=== PATIENT | male | born 1960 | race Caucasian/White ===

== ENCOUNTER 2021-05-17 19:04 | Emergency (ER) | payer BC, OTHER, SELFPAY ==
--- NOTE | ~2021-05-17 | CT_ITS ---
EXAMINATION: CT brain wo con DATE: 05/17/2021 20:36 INDICATION: Head injury. TECHNIQUE: Computed tomography (CT) of the head was performed without intravenous contrast. The mA wa s adjusted according to patient size. Iterative reconstruction technique was employed. The dose-lengt h product was 681.00 mGy-cm. COMPARISON: Brain MRI 12/26/2015 FINDINGS: There is no intracranial hemorrhage, acute infarction, or abnormal intracranial mass lesion . The ventricles are normal in size. The orbits are normal. The paranasal sinuses are clear. The mast oid air cells are normal. There is posterior scalp soft tissue swelling. IMPRESSION: 1. Normal brain. Reviewed, dictated and finalized at location A. IMPRESSION: 1. Normal brain.
[2021-05-17 19:42] VITALS: BP 138/107; PULSE 74; RESP 16; TEMP 36.9; O2SAT 97
--- NOTE | 2021-05-17 20:47 | ED.FALL ---
HPI - Fall General Chief Complaint: Fall Stated Complaint: Fall - head injury Time Seen by Provider: 05/17/21 20:42 Source: RN notes reviewed History of Present Illness HPI Narrative: Patient presents to emergency department from home for a fall. Patient states he was working outside on a approximately 3 foot retaining wall when he slipped and fell backwards. Patient states that he struck his head on the wall. He believes he had approximately 1 seconds of loss of consciousness. Patient has a small area of swelling and abrasion over his posterior scalp he states he does have some small abrasions on his legs but denies any other injuries he denies any vision changes, nausea or vomiting, chest pain, shortness of breath or any other symptoms. Notes mild headache. States he takes a baby aspirin a day Review of Systems Review of Systems: Narrative: Gen.: Denies fevers or chills Eyes: Denies eye pain or visual change ENT: Denies congestion Respiratory: Denies shortness of breath or cough CV: Denies chest pain or palpitations GI: Denies abdominal pain nausea, emesis or diarrhea Musculoskeletal: Denies back pain or muscle pain Neuro: See HPI Skin: Reports mild abrasions Except as documented, all other systems reviewed and negative [facility] Past Medical History Medical History (Updated 05/17/21 @ 20:52 by Heraclio Morales DO) Patient denies significant medical history Social History Social History (Updated 05/17/21 @ 20:50 by Heraclio Morales DO) Smoking status: Never smoker Exam Narrative: Exam Narrative: APPEARANCE: No acute distress, nontoxic, resting in bed EYES: EOMI, PERRL HEENT: Normocephalic, small area of swelling with superficial abrasion over posterior scalp TMs clear bilaterally nares patent oral mucosa moist Neck: Supple no midline tenderness palpation full range of motion without pain RESPIRATORY: No respiratory distress Clear to auscultation bilaterally with no rhonchi wheezing or rales. CARDIOVASCULAR: Regular rate and rhythm without murmurs rubs or gallops. ABDOMINAL: Soft, nontender, nondistended, no rebound or guarding MUSCULOSKELETAl: Moves all extremities. No clubbing, cyanosis or edema. No tenderness palpation of the bilateral upper and lower extremities NEURO: Awake and alert x 4. Following commands, speech normal, no focal deficits SKIN:: Warm, dry. Superficial abrasion over left posterior ankle PSYCHIATRIC: Normal affect/mood, Course Course Emergency Course: Discussed with patient results of workup and diagnosis. Discussed need for follow-up with primary care, proper use of medication, and reasons to return to the emergency department. Patient understands and agrees to current treatment plan Vital Signs Vital signs: Vital Signs Temperature 98.5 F 05/17/21 19:42 Pulse Rate 74 05/17/21 19:42 Respiratory Rate 16 05/17/21 19:42 Blood Pressure 138/107 H 05/17/21 19:42 Pulse Oximetry 97 05/17/21 19:42 Temperature 98.5 F 05/17/21 19:42 Pulse Rate 74 05/17/21 19:42 Respiratory Rate 16 05/17/21 19:42 Blood Pressure 138/107 H 05/17/21 19:42 Pulse Oximetry 97 05/17/21 19:42 MDM - Fall Imaging Data Radiologist's impression: ITS Impressions Head CT 05/17/21 20:38 IMPRESSION: 1. Normal brain. Discharge Plan Discharge Clinical Impression: Contusion of head, Abrasion of ankle, left Patient Disposition: Home, Self-Care Condition: Stable Instructions: Antibiotic Form, Head Injury (ED) Additional Instructions: Return for increasing headache, vomiting, change in mental status or any other symptoms or concern.. Take [id number] Tylenol or ibuprofen for pain as directed on the bottle Follow-up/Referrals: PHYSICIAN,MATERIALS ENGINEERING TECHNICIAN [Primary Care Provider] - Placido Yuan MD [Physician] - (Follow-up in 1-2 days for further on-call physician treatment and evaluation) Time of Disposition: 20:52
== END 2021-05-17 20:58 | disposition home or self-care (01) ==
PROVIDERS: Emergency Provider Emergency Medicine
DX: S00.03XA Contusion of scalp, initial encounter (principal); S90.512A Abrasion, left ankle, initial encounter; W17.89XA Other fall from one level to another, initial encounter
CPT/HCPCS: 70450; 99284